=== PATIENT | male | born 1955 | race African-American/Black ===

== ENCOUNTER 2018-12-16 17:40 | Emergency (ER) | payer OTHER ==
[~2018-12-16 17:40] MED LIST: Iopamidol 370 76% 100 ML VIAL ONE
[2018-12-16] MEDS ORDERED: Ondansetron PF 4 MG/2 ML Vial ONE (17:57)
[2018-12-16 18:01] LABS: INR-International Normal Ratio 2.3; Prothrombin Time 25.2 SEC (12.0-14.7)
[2018-12-16 18:02] LABS: PTT 72.4 SEC (22.9-36.1)
[2018-12-16 18:06] LABS: #Eosinphils 0.2 thou/uL (0.0-0.7); #Monocytes 0.4 thou/uL (0.11-0.59); #Neutrophils 4.8 thou/uL (1.40-6.50); %Basophils 0.2 % (0.0-1.0); %Eosinophils 3.9 % (0.0-10.0); %Monocytes 6.5 % (0.0-10.0); %Neutrophils 74.4 % (42.0-75.0); Hemoglobin 8.7 g/dL (14.0-18.0); Mean Corpuscular HGB CONC 30.8 g/dL (32.0-36.0); Mean Corpuscular Hemoglobin 25.9 pg (27.0-31.0); Mean Platelet Volume 6.9 fL (7.4-10.4); Platelet Count 322 thou/uL (130-400); RBC Distribution Width 13.8 % (11.5-14.5); Red Blood Cell (RBC) Count 3.36 mill/uL (4.70-6.10); White Blood Cell (WBC) Count 6.4 thou/uL (4.8-10.8)
[2018-12-16 18:11] LABS: ALT (SGPT) 30 U/L (8-55); AST (SGOT) 41 U/L (5-34); Albumin 3.6 g/dL (3.4-4.8); Alkaline Phosphatase 106 U/L (40-150); Anion Gap 13 mmol/L (10-20); BUN (Urea Nitrogen) 16 mg/dL (8.4-25.7); Bilirubin, Total 0.6 mg/dL (0.2-1.2); Calc. Creatinine Clearance 0 mL/min (70-130); Calcium 9.4 mg/dL (7.8-10.44); Carbon Dioxide 24 mmol/L (23-31); Chloride 105 mmol/L (98-107); Estimated GFR-MDRD 71; Globulin 5.2 g/dL (2.4-3.5); Glucose 99 mg/dL (80-115); Potassium 3.7 mmol/L (3.5-5.1); Protein, Total 8.8 g/dL (5.8-8.1); Sodium 138 mmol/L (136-145)
[2018-12-16 19:15] LABS: Bilirubin Negative (Negative); Blood, Urine Large (Negative); Clarity Clear (Clear); Glucose, Urine (Dipstick) Negative (Negative); Leukocyte Moderate (Negative); Nitrite Negative (Negative); Protein, Urine (Dipstick) Trace mg/dL (Neg-Trace)
[2018-12-16 19:24] LABS: Amphetamine Not Detected (NotDetected); Barbiturates Screen Not Detected (NotDetected); Benzodiazepine Screen Not Detected (NotDetected); Cocaine Metabolite Screen Not Detected (NotDetected); Medtox Control Line Valid? VALID (VALID); Methadone Not Detected (NotDetected); Methamphetamine Not Detected (NotDetected); Opiate Screen Not Detected (NotDetected); Oxycodone Screen Not Detected (NotDetected); Phencyclidine (PCP) Not Detected (NotDetected); THC/Cannabinoid Screen Not Detected (NotDetected); Tricyclic Screen Not Detected (NotDetected)
[2018-12-16 19:26] LABS: Bacteria/HPF Rare-Few HPF (None Seen); RBC/HPF GREATER THAN 50-TNTC HPF (0-3); Squamous Epithelial 0-3 HPF (0-3)
--- NOTE | 2018-12-16 19:33 | CT ---
NONCONTRAST CT HEAD: Date: 12-16-18 History: History of left sided CVA. Patient on Morphrine. Stroke alert. Comparison: None available. FINDINGS: Low density area seen within the right frontal lobe which extends into the right basal ganglia and p eriventricular white matter related to remote infarction. Low density area is also seen in the left c erebellar hemisphere most compatible with a remote infarction. There is no evidence of acute cortical infarction, hemorrhage, mass effect, or midline shift. There is mild vertebral volume loss not unexp ected for the patient's age. The ventricular system is normal in size, shape and position. Visualized paranasal sinuses and mastoid air cells are clear. Calvarial structures are intact. IMPRESSION: 1. No acute intracranial abnormality is demonstrated. 2. Remote infarctions in the right basal ganglia and right anterior/inferior frontal lobe as well as left cerebellar hemisphere. 3. Above findings discussed with Dr. Nova in the Emergency Department on 12-16-18 at 1754 hours. POS: [facility]
--- NOTE | 2018-12-16 20:26 | CT ---
CT ANGIOGRAM HEAD WITH IV CONTRAST AND 3D RECONSTRUCTIONS CT ANGIOGRAM NECK WITH IV CONTRAST AND 3D RECONSTRUCTIONS: Date: 12-16-18 History: Stroke alert. History of prior CVA. Right sided weakness. FINDINGS: CTA HEAD: There is limited evaluation of the petrous portions of the internal carotid arteries bilaterally. No focal stenosis or branch occlusion is seen involving the [place] of [place] or vertebral basilar sys tem. No aneurysm is seen within the limitations of the technique of this exam. As noted on noncontrast CT head, there are remote infarctions in the right frontal lobe and right bas al ganglia as well as left cerebellar hemisphere. Remote fracture left zygomatic bone. CTA NECK: There is normal arrangement of the great vessels at the aortic arch which are patent. The left common carotid artery proximally is tortuous. Left subclavian innominate arteries are patent. The right sub clavian artery is partially obscured due to dense contrast in the right subclavian vein. The common carotid arteries are patent bilaterally. The bilateral internal carotid arteries are paten t where visualized. As noted above, there is limited evaluation of the petrous portion of each internet marketing assistant al carotid artery. There are patent and codominant bilateral vertebral arteries. There is decreased attenuation in the region of the left pyriform sinus likely related to secretions and coaptation of mucosa in this region. No findings to suggest mass are evident. Visualized upper lung zones are clear. IMPRESSION: 1. No focal stenosis is seen involving the [place] of [place] or vertebral basilar system. 2. No aneurysm is seen within the limitations of the technique of this exam. 3. No focal stenosis is seen involving the internal carotid arteries bilaterally based on NASCET crit eria. There is limited evaluation of the petrous portion of each internal carotid artery. 4. Above findings discussed with Dr. Nova in the Emergency Department on 12-16-18 at 1841 hours. POS: [facility]
== END 2018-12-16 20:43 | disposition short-term general hospital (02) ==
LOC: NAV ERS 17:40 → EEVIPCON 17:40 → NAV ERS 20:43
DX: I63.9 Cerebral infarction, unspecified (principal); G81.90 Hemiplegia, unspecified affecting unspecified side; B20 Human immunodeficiency virus [HIV] disease; I10 Essential (primary) hypertension; E11.9 Type 2 diabetes mellitus without complications; Z79.4 Long term (current) use of insulin; Z79.01 Long term (current) use of anticoagulants; Z79.899 Other long term (current) drug therapy; Z79.891 Long term (current) use of opiate analgesic
CPT/HCPCS: 36416; 51701; 70450; 70496; 70498; 80053; 80306; 81003; 81015; 84484; 85025; 85610; 85730; 87086; 93005; 96374; 99292; J2405; Q9967